=== PATIENT | female | born 1945 | race Hispanic/Latino ===

== ENCOUNTER 2017-05-08 08:15 | Outpatient (CLI) | payer MEDICARE, BC ==
[2017-05-08 10:14] LABS: Hematocrit 37.7 % (36.0-47.0); Mean Platelet Volume 7.9 fL (7.4-10.4); Red Blood Cell (RBC) Count 4.15 mill/uL (4.20-5.40); White Blood Cell (WBC) Count 7.7 thou/uL (4.8-10.8)
[2017-05-08 10:17] LABS: Bilirubin Negative (Negative); Blood, Urine Negative (Negative); Glucose, Urine (Dipstick) >=1000 mg/dL (Negative); Ketone, Urine Negative (Negative); Nitrite Negative (Negative); Protein, Urine (Dipstick) Negative (Neg-Trace); Urobilinogen 0.2 mg/dL (0.2-1.0)
[2017-05-08 10:21] LABS: Bacteria/HPF None Seen HPF (None Seen); Hyaline Casts/LPF 4-6 HYALINE CAST LPF (0-3 Hyaline); Squamous Epithelial 0-3 HPF (0-3); WBC/HPF 0-3 HPF (0-3)
[2017-05-08 10:35] LABS: Anion Gap 15 mmol/L (10-20); BUN (Urea Nitrogen) 22 mg/dL (9.8-20.1); Calc. Creatinine Clearance 0 mL/min (70-130); Calcium 9.8 mg/dL (7.8-10.44); Carbon Dioxide 25 mmol/L (23-31); Chloride 103 mmol/L (98-107); Estimated GFR-MDRD 46
[2017-05-08 10:40] LABS: Prothrombin Time 12.6 SEC (12.0-14.7)
== END 2017-05-08 08:16 | disposition home or self-care (01) ==
LOC: LABBT 08:15
PROVIDERS: ATTEND Orthopaedic Surgery
DX: Z01.812 Encounter for preprocedural laboratory examination (principal); M17.12 Unilateral primary osteoarthritis, left knee
CPT/HCPCS: 80048; 81001; 85027; 85610; 86850; 86900; 86901; 87081

== ENCOUNTER 2017-05-08 08:30 | Inpatient (IN) | payer MEDICARE, BC ==
[2017-05-08 08:32] VITALS: BMI 21.7
[2017-05-15] MEDS ORDERED: Sodium Chloride 0.9% 100 ML ONE ×2 (06:00→08:52)
[2017-05-15] MEDS ORDERED: Ropivacaine 0.2% HCl/PF 20 ML ONE (06:20)
[2017-05-15] MEDS ORDERED: Fentanyl 100 MCG/2 ML VIAL ONE ×3 (06:20→09:20)
[2017-05-15] MEDS ORDERED: Midazolam HCl 2 mg/2 ml Vial ONE (06:20)
[2017-05-15] MEDS ORDERED: Ondansetron HCl/PF 4 MG/2 ML Vial ONE (07:24)
[2017-05-15] MEDS ORDERED: Lidocaine 1% PF 5 ML VIAL ONE (07:24)
[2017-05-15] MEDS ORDERED: Propofol 200 MG/20 ML VIAL ONE (07:24)
[2017-05-15] MEDS ORDERED: ePHEDrine/0.9% NaCl/PF SYRINGE 50 mg/10 ml ONE (07:24)
[2017-05-15] MEDS ORDERED: Fentanyl 100 MCG/2 ML VIAL IV PRN (07:35)
[2017-05-15] MEDS ORDERED: Ondansetron HCl/PF 4 MG/2 ML Vial IVP PRN ×3 (07:35→09:39)
[2017-05-15] MEDS ORDERED: Zolpidem Tartrate 5 MG TAB PO PRN ×2 (07:35→09:39)
[2017-05-15] MEDS ORDERED: HYDROcodone/Acetaminophen 10/325 mg Tablet PO PRN ×3 (07:35→09:39)
[2017-05-15] MEDS ORDERED: Promethazine HCl 25 MG/ML VIAL IM PRN ×3 (07:35→09:39)
[2017-05-15] MEDS ORDERED: traMADol HCl 50 MG TAB PO PRN ×3 (07:35→09:39)
[2017-05-15] MEDS ORDERED: Ropivacaine HCl/PF 250 ML in Premix Bag 1 BAG NERVE BLCK SCH (07:35)
[2017-05-15] MEDS ORDERED: Bupivacaine PF 0.5% 30 ML VIAL ONE (07:45)
[2017-05-15] MEDS ORDERED: Promethazine HCl 25 MG/ML VIAL SLOW IVP PRN (09:07)
[2017-05-15] MEDS ORDERED: diphenhydrAMINE HCl 25 MG CAP PO PRN (09:39)
[2017-05-15] MEDS ORDERED: Fentanyl 100 MCG/2 ML VIAL SLOW IVP PRN ×2 (09:39)
[2017-05-15] MEDS ORDERED: Acetaminophen 325 MG TAB PO PRN (09:39)
[2017-05-15] MEDS ORDERED: Vancomycin HCl 1 GM in Premix Bag 1 BAG IVPB SCH ×2 (09:39→18:00)
[2017-05-15] MEDS: Sodium Chloride 0.9% 1,000 ML IV SCH ×2 (10:54→19:49)
--- NOTE | 2017-05-15 12:00 | OP ---
DATE OF PROCEDURE: 05/15/2017 PREOPERATIVE DIAGNOSIS: Left knee osteoarthritis. POSTOPERATIVE DIAGNOSIS: Left knee osteoarthritis. PROCEDURE PERFORMED: Left total knee arthroplasty. SURGEON: Jayjay Chow M.D. TRANSMISSION TESTER: Eric Rowley PA-C ANESTHESIA: Mccarthy. The patient received LMA with a adductor canal catheter single shot sciatic. T he patient received 25 mL Marcaine 0.5% without epinephrine intraarticularly after closure of the ca psule. ANTIBIOTICS: Ancef 2 grams, vancomycin 1 gram, TXA 1 gram. ESTIMATED BLOOD LOSS: 75 mL. TOURNIQUET TIME: 63 minutes at 250 mmHg. IMPLANTS: The patient received a femur size 3, tibia size 2, a 9 CS poly, and A27 patella. COMPLICATIONS: None. HISTORY OF PRESENT ILLNESS: Ms. Michelle is a 71-year-old female who presented with years of left kne e pain. She had acute increase over February. The patient decided long-term relief. The patient is di abetic, high blood pressure and cholesterol. I discussed with patient the risks and benefits of a l eft total knee arthroplasties to include pain, scar, bleeding, infection, damage to vital structures , decreased range of motion or strength, failure of procedures, continued pain despite surgical inte rvention, fracture above or below the stem, loss of life or limb. The patient understood the risks and benefits of procedure and elected to proceed. PROCEDURE IN DETAIL: Timeout was performed designating the patient's left lower extremity as the op erative site based on sight, consents, and markings. After completion of timeout, the patient's samson rniquet was applied. The tourniquet was brought up to 250 mmHg for 63 minutes. Anterior midline in cision medial patellar approach was made, everted the patella, exposed the distal femur, took the AC L. We then mapped out the distal femur, cut 8 and 9 mm with 0 degrees varus valgus and 4 degrees of anterior slope. We then had a small butterfly fragment. We then placed our sizing block. We exci sed the fat pad, as well as done our medial release. We excised the fat pad and sized for a size 3 and I felt we notched too much with a size 2. We then put our cutting block, cut our anterior, post erior and chamfer cuts. After completion of this, we then removed all the excess bone, placed our p ickle fork in position, exposed the tibia. We released the PCL slightly off the posterior tibia, ex posed the entire tibia. We then mapped our tibia, cut 3-5 mm respectively, 4 degrees of posterior s tessa. We then removed the excess bone and debrided all the bursa, exposed and got the knee in posit ion. We then placed our size 2 trial, pinned it into position, the medial pin, skives a little bit to the medial it was. We had a good overall position of the tray. We placed our lamina fender mechanic apprentice, m edial and lateral meniscus and our posterior osteophytes and loose bodies. We then placed our size 2 tray, skived on the medial cortex, the medial pin, but we had good position, we then placed our ti florencio into place right at the tibial tubercle one-third rotation. We then placed a 9 mm poly, it trac ked well. I liked all the position. We everted the patella, it measured 22 mm, cut 11 mm off, plac ed an A27 patella, it tracked well. We then removed. We cut our keel for our size 2 tibial tray, r emoved the implants. We then placed our femur and removed our femur. We released a little bit of t he PCL to help with the final extension. We then washed and cemented our tibia, placed our poly, re moved excess cement, placed our femur, removed excess cement, placed the patellar, removed excess ce ment, everted the patella and removed all excess cement, placed her in flexion, and closed with #2 V icryl, 2 Quill, 0 Quill, 2-0 Quill and glue. The patient had the tourniquet let down at 63 minutes. The patient admitted for [place] postop p rotocol, weightbear as tolerated.
--- NOTE | 2017-05-15 13:42 | RAD ---
LEFT KNEE TWO VIEWS: History: Knee replacement. Comparison: 02-09-17 FINDINGS: Satisfactory appearance of left knee arthroplasty with total resurfacing. Expected soft tissue gas a nd edema. IMPRESSION: Satisfactory appearance of left total knee arthroplasty. POS: EFRAÍN
[2017-05-15] MEDS ORDERED: Tranexamic Acid 1,000 MG in Sodium Chloride 0.9% 100 ML IVPB SCH (14:45)
[2017-05-15] MEDS: glipiZIDE 10 MG TAB PO SCH (17:40)
[2017-05-15] MEDS ORDERED: HumaLOG 300 UNITS/3 ML VIAL SC PRN (18:27)
[2017-05-15] MEDS ORDERED: cloNIDine HCl 0.1 MG TAB PO PRN (18:27)
[2017-05-15] MEDS ORDERED: Dextrose 5% in Water 1,000 ML IV PRN (18:39)
[2017-05-15] MEDS ORDERED: Dextrose 50% Abboject 50 ML SYRINGE IVP PRN (18:39)
[2017-05-15] MEDS: Atorvastatin Calcium 10 MG TAB PO SCH (20:21)
[2017-05-15] MEDS: metFORMIN HCl XR 500 MG TAB PO SCH (20:22)
[2017-05-15] MEDS: HumaLOG 300 UNITS/3 ML VIAL SC PRN (20:53)
[2017-05-15] MEDS: HYDROcodone/Acetaminophen 10/325 mg Tablet PO PRN (21:17)
--- NOTE | 2017-05-15 23:34 | CON ---
DATE OF CONSULTATION: 05/15/2017 ATTENDING PHYSICIAN: Dr. Jayjay Chow. REASON FOR CONSULTATION: Medical management. HISTORY OF PRESENT ILLNESS: This is a 71-year-old female patient with a history of type 2 diabetes, hypertension, hyperlipidemia, who was admitted by Dr. Chow for persistent chronic left knee pain . The patient failed outpatient therapy, with the regimens for her chronic arthritis. The patient tolerated the left total knee replacement well this morning with no complications, unremarkable post operative period so far. She is to start therapy tomorrow. She denies chest pain, shortness of john ath, or palpitations. Her pain is relatively well managed with anesthesia. PAST MEDICAL HISTORY: Type 2 diabetes, hypertension, hyperlipidemia, history of anemia. MEDICATIONS: Include glipizide 10 mg daily, aspirin 81 mg daily, cinnamon daily, ferrous sulfate 32 5 mg daily, lisinopril 20 mg daily, metformin 1000 mg b.i.d., metoprolol succinate 50 mg daily, omeg a fatty acids 1000 mg b.i.d., pravastatin 40 mg daily. ALLERGIES: No known drug allergies. PAST SURGICAL HISTORY: Cholecystectomy; colonoscopy, last one in 2011. FAMILY HISTORY: Father and mother, . SOCIAL HISTORY: She is . She has children and family involved no smoking, no alcohol, rare caffeine usage. REVIEW OF SYSTEMS: As per the history of present illness. General: She denies any recent fevers, chills, or recent illness. HEENT: No upper respiratory symptoms. Cardiac: No chest pain, shortne ss of breath, or palpitations. Pulmonary: Denies cough or hemoptysis. Gastrointestinal: Denies n ausea or vomiting. Genitourinary: Denies dysuria or hematuria. Neurologic: No weakness, seizures, or syncope. PHYSICAL EXAMINATION: VITAL SIGNS: Temperature 98.0, pulse is 78, respirations 16, blood pressure 166/70, pulse oximetry is 95% on room air. GENERAL: She is awake and alert, in no acute distress. Speech is clear. Mucosa is moist. NECK: Supple. No JVD, adenopathy, or bruits. HEART: Regular rate and rhythm with 2/6 systolic ejection murmur. LUNGS: Clear bilaterally. ABDOMEN: Soft. EXTREMITIES: With no edema. Dressing is in place on her left knee. NEUROLOGIC: Intact. ASSESSMENT AND PLAN: 1. This is a 71-year-old female with chronic arthritis of her knees, status post left total knee re placement. Continue postop. As per Orthopedics, she is to start PT and strength training tomorrow. 2. Type 2 diabetes. We will continue her home medications and Accu-Cheks with insulin sliding scal e as needed. We will strive for a strict control for appropriate healing. 3. Hypertension. Continue her home medications with lisinopril and metoprolol and start clonidine p.r.n., systolic blood pressure over 116. 4. Gastrointestinal protection. 5. Deep venous thrombosis prophylaxis with anticoagulation per Dr. Chow and early ambulation. 6. Cardiac risks. She had preoperative evaluation by Dr. Carlin and is doing well at this time. 7. We will continue to follow along during her hospitalization.
[2017-05-16] MEDS: HYDROcodone/Acetaminophen 10/325 mg Tablet PO PRN ×4 (01:07→21:29)
[2017-05-16 05:08] LABS: Hematocrit 32.8 % (36.0-47.0); Mean Platelet Volume 7.4 fL (7.4-10.4); Red Blood Cell (RBC) Count 3.66 mill/uL (4.20-5.40); White Blood Cell (WBC) Count 9.4 thou/uL (4.8-10.8)
[2017-05-16] MEDS: Sodium Chloride 0.9% 1,000 ML IV SCH ×3 (05:08→23:54)
[2017-05-16] MEDS: HumaLOG 300 UNITS/3 ML VIAL SC PRN ×2 (06:14→18:05)
--- NOTE | 2017-05-16 08:06 | PRG ---
DATE OF SERVICE: 05/16/2017 SUBJECTIVE: The patient complains of knee pain. She is out of bed and eating, but is not hungry du e to her pain. She denies chest pain, shortness of breath or palpitations. She had a good night's sleep last night. OBJECTIVE: VITAL SIGNS: Temperature 99.4, T-max of 99.5, pulse of 80 and regular, respirations 16, blood press ure 119/68, pulse ox of 92% on room air. GENERAL: She is awake and alert, in no acute distress. Speech is clear. NECK: Supple. HEART: Regular rate and rhythm. LUNGS: Clear. ABDOMEN: Soft. EXTREMITIES: With a dressing and brace in place on her left knee. LABORATORY DATA: Accu-Cheks of 188, 250, 152, 182, 121. Hemoglobin and hematocrit of 10.7 and 32.8 . ASSESSMENT AND PLAN: This is a 71-year-old female, 1. Status post left total knee replacement. Postop plan per Orthopedics. Plan for starting PT tod ay and keeping her out of bed. 2. Type 2 diabetes. We will continue her home medications and Accu-Cheks. Hopefully, will improve her Accu-Cheks now that her medications are stabilized. 3. Hypertension is stable. 4. Deep vein thrombosis prophylaxis with early ambulation.
[2017-05-16] MEDS: glipiZIDE 10 MG TAB PO SCH (08:51)
[2017-05-16] MEDS: Aspirin 325 MG TAB PO SCH (08:51)
[2017-05-16] MEDS: Ferrous Gluconate 324 MG TAB PO SCH ×2 (08:52→20:56)
[2017-05-16] MEDS: metFORMIN HCl XR 500 MG TAB PO SCH ×2 (08:52→20:56)
[2017-05-16] MEDS: Lisinopril 20 MG TAB PO SCH (08:53)
[2017-05-16] MEDS: Multivitamin W/ Minerals 1 TAB PO SCH (08:54)
[2017-05-16] MEDS: Senokot S 8.6-50 MG TAB PO SCH ×2 (08:54→20:56)
[2017-05-16] MEDS ORDERED: FLU VACC TS2017-18 (>65YR) 0.5 ML SYRINGE IM ONE (09:00)
[2017-05-16] MEDS: Atorvastatin Calcium 10 MG TAB PO SCH (20:56)
[2017-05-17 05:50] LABS: Mean Platelet Volume 7.9 fL (7.4-10.4); Red Blood Cell (RBC) Count 3.75 mill/uL (4.20-5.40)
--- NOTE | 2017-05-17 08:34 | PRG ---
DATE OF SERVICE: 05/17/2017 Postop day #2. SUBJECTIVE: The patient complains of pain. She has been tolerating therapy. Her appetite is good. She denies chest pain, shortness of breath, denies palpitations. Denies nausea and vomiting. OBJECTIVE: VITAL SIGNS: Temperature 98.3, T-max of 99.3, pulse of 81, respirations 17, pulse ox is 91% on room air, blood pressure 144/73. GENERAL: She is awake and alert, in no acute distress. Speech is clear. NECK: Supple. HEART: Regular rate and rhythm. LUNGS: Clear. EXTREMITIES: With no edema. Accu-Cheks 133, 178, 186. ASSESSMENT AND PLAN: 1. This is a 71-year-old female status post left total knee replacement. Further postop plan and t herapy per Dr. Chow, possible home today. 2. Type 2 diabetes is stable on her home meds and Accu-Cheks with insulin sliding scale. 3. Hypertension remains stable. DISPOSITION: Home when okay with Orthopedics.
[2017-05-17] MEDS: HYDROcodone/Acetaminophen 10/325 mg Tablet PO PRN (08:58)
[2017-05-17] MEDS: Senokot S 8.6-50 MG TAB PO SCH ×2 (09:08→09:17)
[2017-05-17] MEDS: Ferrous Gluconate 324 MG TAB PO SCH (09:08)
[2017-05-17] MEDS: Aspirin 325 MG TAB PO SCH (09:08)
[2017-05-17] MEDS: Multivitamin W/ Minerals 1 TAB PO SCH (09:08)
[2017-05-17] MEDS: glipiZIDE 10 MG TAB PO SCH (09:08)
[2017-05-17] MEDS: metFORMIN HCl XR 500 MG TAB PO SCH (09:08)
[2017-05-17] MEDS: Lisinopril 20 MG TAB PO SCH (09:08)
[2017-05-17 12:28] VITALS: BP 126/71; TEMP 98.2
[2017-05-17] MEDS: HumaLOG 300 UNITS/3 ML VIAL SC PRN (12:51)
[2017-05-17] MEDS: Sodium Chloride 0.9% 1,000 ML IV SCH (13:07)
--- NOTE | 2017-05-18 12:37 | DIS ---
DATE OF ADMISSION: 05/15/2017 DATE OF DISCHARGE: 05/17/2017 ADMISSION DIAGNOSES: 1. Left total knee arthroplasty. 2. Type 2 diabetes. 3. Hypertension. 4. Hyperlipidemia. 5. Anemia. PROCEDURE PERFORMED: Left total knee arthroplasty. HISTORY OF PRESENT ILLNESS: Miguel Angel is a pleasant 71-year-old female with history of left knee pain for many years, underwent a left total knee arthroplasty. The patient's pain was elevated, but cont rolled. On discharge, she was tolerating p.o. Her diabetes was fluctuating followed by Dr. Violeta toth while in the hospital. The patient will be discharged to home. DISCHARGE PREVIOUS HOME MEDICATIONS. She is discharged home with 325 mg aspirin daily, hydrocodone 10/325 as needed for pain. The patient has follow up in 3 weeks, will be sent home with [facility] with [place] postop protocol. The patient will be followed by and with me in 3 weeks .
== END 2017-05-17 15:05 | disposition home or self-care (01) | DRG 470 ==
LOC: SJJU 05-15 05:32
PROVIDERS: ADMIT Orthopaedic Surgery; ATTEND Orthopaedic Surgery
PROC: 0SRD0J9 Replacement of Left Knee Joint with Synthetic Substitute, Cemented, Open Approach (ICD-10-PCS; principal; 2017-05-15)
DX: M17.12 Unilateral primary osteoarthritis, left knee (principal); E11.9 Type 2 diabetes mellitus without complications; I35.8 Other nonrheumatic aortic valve disorders; I10 Essential (primary) hypertension; Z79.01 Long term (current) use of anticoagulants; Z79.82 Long term (current) use of aspirin; E78.00 Pure hypercholesterolemia, unspecified; K21.9 Gastro-esophageal reflux disease without esophagitis
CPT/HCPCS: 36415; 36416; 85027; 90471; 90682; A4216; C1713; C1776; G0008; G8978-GP-CL; G8979-GP-CJ; J2001; J2250; J2405; J2704; J2795; J3010; J3370; J7050; Q2036; S0020

== ENCOUNTER 2018-09-19 08:55 | Outpatient (CLI) | payer MEDICARE | END 2018-09-19 08:56 | disposition home or self-care (01) | LOC: BICMAMMO 08:55 | PROVIDERS: ATTEND Family Medicine | DX: Z12.31 Encounter for screening mammogram for malignant neoplasm of breast (principal); R92.1 Mammographic calcification found on diagnostic imaging of breast; Z80.3 Family history of malignant neoplasm of breast | CPT/HCPCS: 77063; 77067 ==

== ENCOUNTER 2025-04-15 10:59 | Day surgery (SDC) | payer OTHER ==
[2025-04-15 11:31] VITALS: BP 134/65; TEMP 97.9
[2025-04-15 13:44] LABS: Anion Gap 12 mmol/L (10-20); BUN (Urea Nitrogen) 23 mg/dL (9.8-20.1); Calc. Creatinine Clearance 0 mL/min (70-130); Calcium 8.6 mg/dL (7.8-10.44); Carbon Dioxide 25 mmol/L (23-31); Chloride 97 mmol/L (98-107); Glucose 120 mg/dL (83-110); Potassium 4.4 mmol/L (3.5-5.1); Sodium 130 mmol/L (136-145)
== END 2025-04-15 13:06 | disposition home or self-care (01) ==
LOC: ONC/OP 10:59
PROVIDERS: ATTEND Internal Medicine Hematology & Oncology
DX: C7A.098 Malignant carcinoid tumors of other sites (principal); D50.0 Iron deficiency anemia secondary to blood loss (chronic)
CPT/HCPCS: 80048; 96360